=== PATIENT | male | born 1970 | race American Indian/Alaskan Native ===

== ENCOUNTER 2017-12-12 05:12 | Emergency (ER) | payer MEDICAID ==
[2017-12-12 05:35] VITALS: BP 154/100; PULSE 87; RESP 15; TEMP 98; O2SAT 97
--- NOTE | 2017-12-12 06:09 | C.PDOC ---
History Of Present Illness 47 year old male presents to the ER with a complaint of intermittent diarrhea, chest tightness, and feeling shaky for the past week. 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 Patient reports he has had the symptoms since he stopped taking percocet and believes he is withdrawing even though he has not taken percocet in a month. Denies current chest pain or SOB. Patient reports Hx of marijuana use. Patient is requesting medications to help his sx Time Seen by Provider: 12/12/17 05:27 Chief Complaint (Nursing): Anxiety History Per: Patient History/Exam Limitations: no limitations Onset/Duration Of Symptoms: Days, Intermittent Episodes Current Symptoms Are (Timing): Still Present Suicide/Self Injury Attempted (Context): None Associated Symptoms: Anxiety. denies: Depression, Suicidal Thoughts, Suicidal Plan Involuntary Hold By: None Recent travel outside of the [place]: No Past Medical History Reviewed: Historical Data, Nursing Documentation, Vital Signs Vital Signs: Last Vital Signs Temp 98.0 F 12/12/17 05:24 Pulse 87 12/12/17 05:24 Resp 15 12/12/17 05:24 BP 154/100 H 12/12/17 05:24 Pulse Ox 97 12/12/17 06:16 - Medical History PMH: Anxiety Family History: States: Unknown Family Hx - Social History Hx Tobacco Use: No (DENIED) Hx Alcohol Use: Yes Hx Substance Use: Yes - Immunization History Hx Tetanus Toxoid Vaccination: No Hx Influenza Vaccination: No Hx Pneumococcal Vaccination: No Review Of Systems Constitutional: Positive for: Other (Feeling shaky). Negative for: Fever, Chills Cardiovascular: Negative for: Chest Pain Respiratory: Positive for: Other (Chest tightness). Negative for: Shortness of Breath Gastrointestinal: Positive for: Diarrhea Physical Exam - Physical Exam Appears: Non-toxic, Other (Anxious) Skin: Normal Color, Warm, Dry Head: Atraumatic, Normacephalic Eye(s): bilateral: Normal Inspection Oral Mucosa: Moist Neck: Normal, Supple Chest: Symmetrical, No Tenderness Cardiovascular: Rhythm Regular Respiratory: Normal Breath Sounds, No Rales, No Rhonchi, No Wheezing Gastrointestinal/Abdominal: Normal Exam, Soft, No Tenderness Extremity: Normal ROM (x4) Neurological/Psych: Oriented x3, Normal Speech Gait: Steady ED Course And Treatment O2 Sat by Pulse Oximetry: 97 (Room air) Pulse Ox Interpretation: Normal Progress Note: Patient is requesting anxiety medications at this time; patient offered labs and crisis evaluation but refuses. Patient eloped from the ER. Disposition - Disposition Disposition: AGAINST MEDICAL ADVICE Disposition Time: 05:35 Condition: UNKNOWN Forms: [facility] (Uzbek) - Clinical Impression Clinical Impression: Anxiety - PA / MEDIA MARKETING COORDINATOR / Resident Statement MD/DO has reviewed & agrees with the documentation as recorded. - Scribe Statement The provider has reviewed the documentation as recorded by the Scribtemo Rapp All medical record entries made by the Kelliibtemo were at my direction and personally dictated by me. I have reviewed the chart and agree that the record accurately reflects my personal performance of the history, physical exam, medical decision making, and the department course for this patient. I have also personally directed, reviewed, and agree with the discharge instructions and disposition.
--- NOTE | 2017-12-14 12:20 | CARD ---
APPROVED REPORT EKG Measurement Heart [id number] <Conclusion> Normal sinus rhythm Possible Left atrial enlargement Incomplete right bundle branch block Borderline ECG
== END 2017-12-12 05:35 | disposition left against medical advice (07) ==
LOC: C.ER 05:12
DX: F41.9 Anxiety disorder, unspecified (principal)

== ENCOUNTER 2018-06-01 03:03 | Emergency (ER) | payer MEDICAID ==
[2018-06-01 03:12] VITALS: RESP 16
[2018-06-01] MEDS ORDERED: Sodium Chloride 0.9% 1,000 ML IV ONE (04:33)
--- NOTE | 2018-06-01 04:33 | C.PDOC ---
History Of Present Illness The patient presents to the ED for evaluation of lightheadedness and dizziness which began yesterday. Patient reports feeling like he was about to pass out and notes he has been working in a warm environment. Patient also noted a rash to his penis yesterday, but states it is no longer present. Patient denies fever , chills, headache, and purulent or clear penile discharge. Time Seen by Provider: 06/01/18 03:33 Chief Complaint (Nursing): Dizziness/Lightheaded History Per: Patient History/Exam Limitations: no limitations Onset/Duration Of Symptoms: Hrs Current Symptoms Are (Timing): Still Present Severity: None Pain Scale Rating Of: 0 Recent travel outside of the [place]: No Additional History Per: Patient Past Medical History Reviewed: Historical Data, Nursing Documentation, Vital Signs Vital Signs: Last Vital Signs Temp 97.9 F 06/01/18 05:25 Pulse 76 06/01/18 05:25 Resp 16 06/01/18 05:25 BP 134/90 06/01/18 05:25 Pulse Ox 100 06/01/18 05:25 - Medical History PMH: Anxiety, HTN Surgical History: No Surg Hx Family History: States: Unknown Family Hx - Social History Hx Tobacco Use: No (DENIED) Hx Alcohol Use: Yes Hx Substance Use: Yes - Immunization History Hx Tetanus Toxoid Vaccination: No Hx Influenza Vaccination: No Hx Pneumococcal Vaccination: No Review Of Systems Constitutional: Negative for: Fever, Chills Eyes: Negative for: Vision Change Cardiovascular: Negative for: Chest Pain, Palpitations Respiratory: Negative for: Cough, Shortness of Breath Gastrointestinal: Negative for: Nausea, Vomiting, Abdominal Pain Genitourinary: Positive for: Rash (on penis). Negative for: Dysuria, Hematuria , Penile Discharge Musculoskeletal: Negative for: Back Pain Skin: Negative for: Rash, Lesions, Jaundice, Bruising Neurological: Positive for: Dizziness, Other (lightheadedness ). Negative for: Weakness, Numbness, Headache Psych: Negative for: Anxiety Physical Exam - Physical Exam Appears: Non-toxic, No Acute Distress Skin: Warm, Dry Head: Normacephalic Eye(s): bilateral: Normal Inspection Oral Mucosa: Moist Neck: Supple Chest: Symmetrical, No Deformity Cardiovascular: Rhythm Regular Respiratory: No Rales, No Rhonchi, No Wheezing Gastrointestinal/Abdominal: Soft, No Tenderness Male Genital: No Testicular Tenderness, No Testicular Swelling, Circumcised Extremity: Normal ROM Extremity: Bilateral: Atraumatic Neurological/Psych: Oriented x3 Gait: Steady ED Course And Treatment - Laboratory Results Result Diagrams: 06/01/18 04:47 06/01/18 04:47 ECG: Interpreted By Me, Viewed By Me ECG Rhythm: Sinus Rhythm (74), Nonspecific Changes O2 Sat by Pulse Oximetry: 98 (on RA) Pulse Ox Interpretation: Normal - Radiology CXR: Interpreted by Me, Viewed By Me CXR Interpretation: No: Infiltrates, Fracture, Pnemothorax Progress Note: Bloodwork, urinalysis, CXR, and EKG ordered. IV Fluids given. Reevaluation Time: 05:52 Reassessment Condition: Improved Disposition Counseled Patient/Family Regarding: Studies Performed, Diagnosis, Need For Followup - Disposition Referrals: Gayle Rocha MD [Staff Provider] - Disposition: HOME/ ROUTINE Disposition Time: 03:45 Condition: FAIR Additional Instructions: Please return if symptoms recur Instructions: Dizziness, Nonvertigo, (DC) Forms: [facility] (Persian) - Clinical Impression Clinical Impression: Dizziness - Scribe Statement The provider has reviewed the documentation as recorded by the Scribe (Elvira Soliz) Provider Attestation: All medical record entries made by the Scribe were at my direction and personally dictated by me. I have reviewed the chart and agree that the record accurately reflects my personal performance of the history, physical exam, medical decision making, and the department course for this patient. I have also personally directed, reviewed, and agree with the discharge instructions and disposition.
[2018-06-01 05:02] LABS: URINE BILIRUBIN NEGATIVE (NEGATIVE); URINE CLARITY Clear (Clear); URINE COLOR YELLOW (YELLOW); URINE GLUCOSE (UA) NEGATIVE (Normal)
[2018-06-01 05:03] LABS: ALB/GLOB RATIO 1.6 (1.0-2.1); ALBUMIN 4.1 g/dL (3.5-5.0); ALT/SGPT 36 U/L (21-72); AST/SGOT 55 U/L (17-59); BLOOD UREA NITROGEN 13 mg/dL (9-20); CALCIUM 8.5 mg/dl (8.6-10.4); GFR AFRICAN-AMERICAN > 60; GFR NON-AFRICAN AMERICAN > 60
[2018-06-01 05:04] LABS: PH,URINE 5.5 (5.0-8.0); URINE BLOOD NEGATIVE (NEGATIVE); URINE LEUKOCYTE ESTERASE NEGATIVE Leu/uL (Negative); URINE PROTEIN NEGATIVE (NEGATIVE); URINE UROBILINOGEN 0.2 mg/dL (0.2-1.0)
[2018-06-01 05:16] LABS: BASO # 0.2 K/uL (0.0-0.2); BASO % 2.5 % (0.0-2.0); EOS # 0.7 K/uL (0.0-0.7); EOS % 10.6 % (0.0-4.0); HEMOGLOBIN 13.4 g/dL (12.0-18.0); LYMPH % 43.5 % (20.0-40.0); MEAN CELL VOLUME 92.8 fL (80.0-94.0); MEAN CORPUSCULAR HEMOGLOBIN 31.7 pg (27.0-31.0); MEAN CORPUSCULAR HGB CONC 34.1 g/dL (33.0-37.0); MEAN PLATELET VOLUME 6.7 fL (7.2-11.7); MONO # 0.7 K/uL (0.0-0.8); MONO % 10.2 % (0.0-10.0); NEUT # 2.3 K/uL (1.8-7.0); NEUT % 33.2 % (50.0-75.0); NRBC % 0.1 % (0.0-2.0); RBC 4.22 Mil/uL (4.40-5.90); RED CELL DISTRIBUTION WIDTH 12.7 % (11.5-14.5); WHITE BLOOD COUNT 6.9 K/uL (4.8-10.8)
[2018-06-01 05:25] VITALS: BP 134/90; PULSE 76; TEMP 97.9
[2018-06-01 05:53] VITALS: O2SAT 98
--- NOTE | 2018-06-01 08:37 | RAD ---
PROCEDURE: CHEST RADIOGRAPH, 1 VIEW HISTORY: SOB COMPARISON: 05/10/2014. FINDINGS: LUNGS: The lungs are well inflated and clear. PLEURA: No pneumothorax or pleural fluid seen. CARDIOVASCULAR: Normal. OSSEOUS STRUCTURES: No significant abnormalities. VISUALIZED UPPER ABDOMEN: Normal. OTHER FINDINGS: None. IMPRESSION: No active pulmonary disease.
--- NOTE | 2018-06-04 16:32 | CARD ---
APPROVED REPORT EKG Measurement Heart [id number] [place] [id number] [id number] <Conclusion> Normal sinus rhythm Normal ECG
== END 2018-06-01 06:02 | disposition home or self-care (01) ==
LOC: C.ER 03:03
DX: R42 Dizziness and giddiness (principal)
CPT/HCPCS: 71045; 80053; 81001; 82948; 85025; 93005; 99285; J7030